=== PATIENT | female | born 1990 | race Caucasian/White ===

== ENCOUNTER 2018-07-20 20:30 | Emergency (ER) | payer MEDICAID ==
[~2018-07-20] VITALS: Ht 165.1 cm; Wt 112.0 kg
[2018-07-20] MEDS ORDERED: ONDANSETRON 4MG ODT PO ONE (21:30)
[2018-07-20] MEDS ORDERED: ACETAMINOPHEN 325MG TABLET PO ONE (21:30)
[2018-07-20 23:28] VITALS: BP 136/76
== END 2018-07-20 23:29 | disposition home or self-care (01) ==
LOC: ER 20:30
DX: S09.8XXA Other specified injuries of head, initial encounter (principal); S16.1XXA Strain of muscle, fascia and tendon at neck level, initial encounter; F07.81 Postconcussional syndrome; R11.0 Nausea; E66.9 Obesity, unspecified; F17.200 Nicotine dependence, unspecified, uncomplicated; W01.198A Fall on same level from slipping, tripping and stumbling with subsequent striking against other object, initial encounter; Y93.9 Activity, unspecified; Y92.9 Unspecified place or not applicable
CPT/HCPCS: 70450; 72125; 81025; 99284; Q0162

== ENCOUNTER 2023-11-19 15:47 | Emergency (ER) | payer MEDICAID, OTHER ==
[~2023-11-19] VITALS: Ht 165.1 cm; Wt 122.5 kg
[2023-11-19 15:56] VITALS: O2SAT 99
[2023-11-19 16:42] LABS: BASOPHILS % 0.8 % (0.0-2.0); EOSINOPHILS % 2.9 % (0.0-5.0); HEMATOCRIT. 40.8 % (36.0-48.0); HEMOGLOBIN. 13.8 g/dL (12.0-16.0); LYMPHOCYTES % 18.5 % (20.0-50.0); MEAN CORPUSCULAR HEMOGLOBIN 33.3 pg (28.0-32.0); MEAN CORPUSCULAR HGB CONC 33.8 g/dL (31.0-37.0); MEAN CORPUSCULAR VOLUME 98.4 fL (81.0-99.0); MEAN PLATELET VOLUME 10.1 fl (7.4-10.4); MONOCYTES % 11.8 % (2.0-8.0); PLATELET 224 x1000/uL (130-400); RED BLOOD CELL COUNT 4.14 mill/uL (4.2-5.4); RED CELL DISTRIBUTION WIDTH 13.5 % (11.6-14.6); WHITE BLOOD COUNT 9.9 x1000/uL (4.5-11.0)
[2023-11-19 16:46] LABS: CHLORIDE 106 mEq/L (98-107); SODIUM 136 mEq/L (136-145)
[2023-11-19 16:47] LABS: CALCIUM 9.9 mg/dL (8.7-10.4); CARBON DIOXIDE 27 mEq/L (21-32)
[2023-11-19 16:52] LABS: CREATININE 0.7 mg/dL (0.6-1.0); GLUCOSE 96 mg/dL (70-105); UREA NITROGEN BLOOD 9 mg/dL (9-23)
[2023-11-19 16:53] LABS: HCG SCREEN NEGATIVE
[2023-11-19 16:56] LABS: TROPONIN I HIGH SENSITIVITY < 4 ng/L (3.0-34)
[2023-11-19] MEDS: IBUPROFEN 600MG TABLET PO ONE (17:18)
[2023-11-19 19:00] VITALS: BP 139/78; PULSE 84; RESP 17; TEMP 36.61404; O2SAT 100
[2023-11-19] MEDS ORDERED: NIRM1TAB8 PO (19:26)
[2023-11-19] MEDS ORDERED: AMOX-494 MT (19:28)
[2023-11-19] MEDS ORDERED: IOHEXOL-350 100 ML BOTTLE ONE (23:22)
== END 2023-11-19 19:40 | disposition home or self-care (01) ==
LOC: ER 15:47
DX: U07.1 COVID-19 (principal); J12.82 Pneumonia due to coronavirus disease 2019
CPT/HCPCS: 80048; 84703; 85025; 84484; 36415; 71045; 71275; 93005; 99285; Q9967; Z7610 ×3